=== PATIENT | female | born 1985 | race Caucasian/White ===

== ENCOUNTER 2016-12-28 03:01 | Emergency (ER) | payer OTHER ==
[2016-12-28] VITALS (10 sets, daily range): BP systolic 87–136; BP diastolic 44–85; PULSE 77–124; RESP 14–18; O2SAT 96–100
[~2016-12-28 03:01] MED LIST: Ascorbic Acid PO; Benzocaine TOPICAL; DOCU-41 PO; FERR-74 PO; Hydrocodone/Acetaminophen PO; IBUP800T28 PO
--- NOTE | 2016-12-28 03:05 | ED.REPORT ---
HPI- Female Date of Service Dec 28, 2016 ED Provider: Yaw Dave Patient is an otherwise healthy 31 year old ectopic 1, currently ten weeks , who presents to the ED complaining of vaginal bleeding. She was diagnosed with an incomplete miscarriage last week at 9 weeks . Today she visited her PCP and was given (Misoprostol) medication to speed up the process. She is concerned she is losing too much blood as she has been going through at least a pad an hour for 3 and a half hours and is feeling light headed. She is clammy, sweaty, with mild nausea. She is having significant crampy discomfort. She denies LOC, weakness, or any other symptoms. She is known to be Rh+. Nursing Notes Stated Complaint: MISCARRIAGE Nursing Notes Reviewed: Yes Allergies: Coded Allergies: Penicillins (Verified Allergy, Unknown, 12/28/16) Scheduled ([Ascorbic Acid]) 500 MG TABLET 500 MG PO DAILY Ferrous Sulfate (Feosol) 325 Mg Tablet 325 MG PO DAILY Scheduled PRN ([Benzocaine]) 1 SPRAY/GM BOTTLE 1 SPRAY TOPICAL PRN PRN PRN for perineal pain ([Hydrocodone/Acetaminophen]) 1 TABLET TABLET 1-2 TABLET PO Q4H PRN PRN For Pain Docusate Sodium (Colace) 100 Mg Capsule 100 MG PO BID PRN PRN For Constipation Ibuprofen (Ibuprofen) 800 Mg Tablet 800 MG PO Q6H PRN PRN For Pain General Time Seen by MD: 03:05 Chief Complaint Pelvic pain, Vaginal bleeding... Hx Obtained From: Patient Arrived By: Walk-in Sudden in Onset?: Yes Onset Occurred: 1 - 4 hours ago Context of Onset: , 1st trimester Symptom Duration: Since onset Past Medical History Past Medical History Denies Past Surgical History None reported Smoking History Unknown if Ever Smoker Social History Other Social History: Good social support Ambulatory Status Independent Review of Systems Female: Reports: Vaginal bleeding - abnl Neurologic: Reports: Lightheaded, Denies: Change LOC, Weakness Complete sys rev & neg: except as marked. 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 and clots, stripped some membrane and bleeding is under control General/Constitutional: Awake, Alert, Well developed Appearance / Presentation: Positive: Pale Heart Rate / Rhythm: Positive: Tachycardia Interpretation & Diagnostics Lab Results Interpretation Result Diagram: 12/28/16 0605 12/28/16 0315 Test 12/28/16 03:15 12/28/16 06:05 White Blood Count 12.7th/mm3 (3.8-10.1) Red Blood Count 4.13mil/mm3 (3.90-5.20) Mean Corpuscular Volume 84.5fL (81-100) Mean Corpuscular Hemoglobin 28.6pg (27.0-35.0) Mean Corpuscular Hemoglobin Concent 33.8% (32.0-37.0) Red Cell Distribution Width 12.9% (12.3-15.4) Platelet Count 256bil/L (150-400) Neutrophils (%) (Auto) 59.8% (40-74) Lymphocytes (%) (Auto) 30.4% (14-46) Monocytes (%) (Auto) 7.3% (4-12) Eosinophils (%) (Auto) 2.0% (0-5) Basophils (%) (Auto) 0.2% (0-3) Sodium Level 131mEq/L (134-144) Potassium Level 3.7mEq/L (3.5-5.2) Chloride Level 96mEq/L (97-108) Carbon Dioxide Level 21mmol/L (18-29) Blood Urea Nitrogen 13mg/dL (6-20) Creatinine 0.58mg/dL (0.57-1.00) Estimat Glomerular Filtration Rate 174mL/min (>59) Glucose Level 166mg/dL (60-99) Calcium Level 8.6mg/dL (8.5-10.1) Magnesium Level 1.7mg/dL (1.6-2.6) Total Bilirubin 0.3mg/dL (0.0-1.2) Aspartate Amino Transf (AST/SGOT) 14U/L (0-50) Alanine Aminotransferase (ALT/SGPT) 12U/L (0-32) Alkaline Phosphatase 75U/L (25-150) Total Protein 6.5g/dL (6.4-8.4) Albumin 3.6g/dL (3.4-5.0) Lipase 24U/L (13-60) HCG Beta Subunit [id number]/mL Hemoglobin 9.6g/dL (12.0-15.6) Hematocrit 28.8% (35.0-46.0) Procedures Procedure Notes: Products of conception stripped down from the lower segment and os with sterile ring forceps. Diminished bleeding subsequent, but continues to bleed at a lower rate. Patient tolerated the procedure well. Re-Eval/Medical Decision Med Decision/Clinical Course 31-year-old female presents with an incomplete miscarriage with a documented intrauterine demise at nine weeks, one week ago. She has had a 2 g drop of hemoglobin and some intermittent hypotension with dizziness since arrival. Ultrasound awaited this morning. Signed out at [address] David He. Discussed with gynecology on-call, who will see promptly if her clinical situation deteriorates, and as soon as her ultrasound is accomplished otherwise. Discharge & Departure Impression: Primary Impression: Incomplete miscarriage Additional Impression: Vaginal hemorrhage Discharge Condition All VS Reviewed: Yes Referrals: NOPCP (PCP) Care Transferred to: Dr. Carrillo Care Transferred at: 06:00 Scribe Attestation Portions of this note were transcribed by Marshall Brand. I, Dr. Dave personally performed the history, physical exam and medical decision-making; I reviewed and confirmed the accuracy of the information in the transcribed note. Signed by: Marshall Brand 12/28/2016, 0609 Duarte Dave MD Dec 28, 2016 03:05 MARSHALL BRAND Dec 28, 2016 03:29
[2016-12-28 03:40] LABS: BASOPHILS % (AUTO) 0.2 % (0-3); MONOCYTES % (AUTO) 7.3 % (4-12); Mean Corpuscular Hemoglobin 28.6 pg (27.0-35.0); Mean Corpuscular Volume 84.5 fL (81-100); NEUTROPHILS % (AUTO) 59.8 % (40-74); Platelet Count 256 bil/L (150-400)
[2016-12-28 03:56] LABS: Magnesium 1.7 mg/dL (1.6-2.6)
[2016-12-28] MEDS ORDERED: Methylergonovine 0.2 mg/mL Inj IM ONE (04:10)
[2016-12-28] MEDS ORDERED: 0.9% Sodium Chloride 1,000 ML IV ONE ×2 (04:15→04:55)
--- NOTE | 2016-12-28 08:32 | DRSVH ---
PROCEDURE: US PELVIC SONOGRAM + TRANSVAGINAL SONOGRAM INDICATIONS: incomplete ab TECHNIQUE: Real-time scanning was performed of the pelvic organs, with image documentation. Additional endovagi nal scanning was necessary due to incomplete visualization of the adnexal and endometrial structures by transabdominal scanning. COMPARISON: [facility], US, US OB<14 WKS+OB TRANSVAG, 12/19/2016, 17:20. FINDINGS: (orthogonal measurements) Uterus size: 10.25 cm, 6.46 cm, 4.88 cm Endometrium thickness: 2.84 cm Right ovary size: 3.65 cm, 2.28 cm, 1.77 cm Left ovary size: 3.25 cm, 2.44 cm, 1.84 cm Transabdominal scanning: Limited scanning through the kidneys shows no hydronephrosis. No pathologi c free abdominal or pelvic fluid. Endovaginal scanning: Uterus: Uterus is normal in size and appearance. Endometrium is thickened and heterogeneous in appe arance. Mild vascularity. Ovaries: Simple right paraovarian cyst redemonstrated measuring roughly 16 mm and has a corpus luteal cyst involving the right ovary measuring roughly 17 mm. Normal left ovary. IMPRESSION: Thickened, heterogeneous endometrial complex with vascularity. Retained products of conc eption cannot be excluded. Correlate clinically and if indicated followup ultrasound could be perfor med. Dr. Carrillo given results by the insurance legal assistant at 0745 hrs. 12/28/2016. Dictated by: Kev Kent A Interpreted: Leonor Serrano MD on 12/28/2016 at 8:28 Transcribed by: HELEN on 12/28/2016 at 8:31 Approved by: Leonor Serrano MD, PhD on 12/28/2016 at 9:46
--- NOTE | 2016-12-28 09:45 | CONS ---
[address] [address] CONSULTATION REPORT PATIENT: SAMUEL OSPINA : 1985 MR#: [id number] ADMIT: 12/28/2016 JOB ID: [id number] DATE OF SERVICE: 12/28/2016 OBSTETRICAL CONSULTATION: CHIEF COMPLAINT: Incomplete , heavy vaginal bleeding. HISTORY OF PRESENT ILLNESS: This is a 31-year-old G 3, P 1-0-1-1 female who is presenting approximately 10 weeks gestation with an incomplete . She was diagnosed with this last week and was given Cytotec by Dr. Salazar. She began having heavy vaginal bleeding following this, including lightheadedness, feeling clammy and sweaty with nausea as well. Because of this, she presented to the emergency department. She states she was approximately 10 weeks when an ultrasound showed a miscarriage. She took the Cytotec her first dose at noon yesterday followed by a second dose at 6 p.m. and then started having heavy vaginal bleeding following this. She has been evaluated in the emergency department overnight and this morning she states that her bleeding has decreased for the last hour. PAST MEDICAL HISTORY: Denies. PAST SURGICAL HISTORY: Denies. OBSTETRICAL HISTORY: She is a G 3, P 1. Her first was a left-sided ectopic requiring methotrexate. Her second was a full-term spontaneous vaginal delivery without complications. This is her third . SOCIAL HISTORY: She denies any tobacco, alcohol or drug use. FAMILY HISTORY: Noncontributory. REVIEW OF SYSTEMS: Significant for heavy vaginal bleeding. Mild lower abdominal cramping. Dizziness and feeling lightheaded earlier which has since resolved. Her bleeding has also decreased significantly. Objectively, she is afebrile. Her pulse is 95. Her respiratory rate is 14. Her blood pressure is 111/60. She is satting 99% on room air. In general, she is awake, alert, oriented, in no acute distress. Lying comfortably in the room. Her abdomen is soft. It is appropriately tender and it is nondistended. Speculum examination shows a small clot at the cervical os which was removed. There was no vaginal bleeding beyond this. There was no blood within the vaginal vault. Her cervix was visually closed. Transvaginal ultrasound completed in the emergency department showed a uterus measuring 10 x 6 x 5, with a 2.8 cm endometrial stripe, normal appearing ovaries bilaterally with an endometrium that was thickened and heterogenous without any obvious retained products of conception. However, this could not be excluded. LABORATORY DATA: At admission she had a white count of 12.7, hemoglobin of 11.8, and platelets of 256. Her hemoglobin dropped to 8.8 when rechecked two hours after admission, but two follow up hemoglobin labs at 6 a.m. showed a hemoglobin of 9.6, and then at 8 a.m. this morning showed a hemoglobin of 9.3, documenting stability. ASSESSMENT AND PLAN: This is a 31-year-old G 3, P 1-0-1-1 female who is presenting with an incomplete after undergoing a medical treatment for this yesterday afternoon. At this point in time, her bleeding has tapered off significantly. She is no longer having bleeding and she is no longer dizzy. On her lab evaluations her hemoglobin is stable at 9.3 after trending over six hours. Ultrasound does not show any obvious retained products of conception, but does show a thickened and heterogenous endometrium. Her blood type is Rh positive. At this point in time, as she is stable and her bleeding has tapered off significantly, I would recommend continued expectant management. She does not need a surgery, as she is clinically stable and her bleeding appears to be improving. She does have a follow up appointment scheduled this Sunday with Dr. Salazar and I have recommended that she continue with this. Additionally I have recommended that she begin ferrous sulfate 325 mg p.o. t.i.d. as well as Colace and vitamin C to help correct her mild anemia. All questions and concerns of the patient were answered and I would recommend followup in clinic early next week. KASSANDRA
--- NOTE | 2016-12-29 13:30 | PATH ---
SURGICAL PATHOLOGY Attending Physician:Lalitha Phillips, CASE STATUS: Signed Out PATIENT NAME: SAMUEL OSPINA PID: [id number] : 1985 DATE COLLECTED:12/28/2016 16:56 SPECIMEN: Products of conception CLINICAL HISTORY: 1. POC FOR PATHOLOGY FINAL DIAGNOSIS: 1.POC FOR PATHOLOGY: IMMATURE PLACENTAL TISSUE AND DECIDUA WITH MILD ACTIVE INFLAMMATION, CONSISTENT WITH SPONTANEOUS . NO TISSUE IDENTIFIED. NO EVIDENCE OF MALIGNANCY. ICD10 O02.1 GROSS DESCRIPTION: The specimen is received fresh in one container labeled with the patient's name, sublabeled "products of conception" and consists of multiple portions of tissue and clotted blood which aggregate to 4.0 x 2.5 x 1.5 CM. No grossly recognizable parts are observed. The specimen is entirely submitted in 4 cassettes. 12/28/2016 DAC MICRO DESCRIPTION: See diagnosis. ICD-9 CODES: CPT CODES: 1: 57381 Electronically Signed Out Priya Hugo MD [facility] [address], [place] [address] Technical component performed at [facility], [address] [place] [address] Ave[address], [place], [address]
== END 2016-12-28 09:27 | disposition home or self-care (01) ==
LOC: SED 03:01
DX: O03.9 Complete or unspecified spontaneous abortion without complication (principal); Z3A.09 9 weeks gestation of pregnancy
CPT/HCPCS: 36415; 76830; 76856; 80053; 83690; 83735; 84702; 85014; 85018; 85025; 86850; 96361; 96372; 96374; 99291; J1885; J2210; J7030